=== PATIENT | male | born 1985 | race Hispanic/Latino ===

== ENCOUNTER 2018-05-16 15:54 | Emergency (ER) | payer MEDICAID, OTHER ==
[2018-05-16 15:54] VITALS: BMI 23.3
[2018-05-16 16:09] VITALS: BP 107/68; PULSE 66; RESP 18; TEMP 97.9; O2SAT 99
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
== END 2018-05-16 18:44 | disposition home or self-care (01) ==
LOC: C.ER 15:54
DX: S60.221A Contusion of right hand, initial encounter (principal); S00.83XA Contusion of other part of head, initial encounter; S00.81XA Abrasion of other part of head, initial encounter; S00.511A Abrasion of lip, initial encounter; Y09 Assault by unspecified means

== ENCOUNTER 2018-06-10 10:00 | Emergency (ER) | payer MEDICAID ==
[2018-06-10 10:00] VITALS: BMI 23.3
[2018-06-10] MEDS ORDERED: Aspirin 325 mg EC Tablets PO STA (10:27)
[2018-06-10 10:30] LABS: LYMPH # 2.2 K/uL (1.0-4.3); MEAN CORPUSCULAR HEMOGLOBIN 32.6 pg (27.0-31.0); RBC 4.46 Mil/uL (4.40-5.90); WHITE BLOOD COUNT 8.4 K/uL (4.8-10.8)
[2018-06-10 10:36] LABS: BASO # 0.1 K/uL (0.0-0.2); BASO % 0.9 % (0.0-2.0); EOS # 0.2 K/uL (0.0-0.7); EOS % 2.8 % (0.0-4.0); HEMOGLOBIN 14.5 g/dL (12.0-18.0); LYMPH % 26.4 % (20.0-40.0); MEAN CELL VOLUME 92.6 fL (80.0-94.0); MEAN CORPUSCULAR HGB CONC 35.2 g/dL (33.0-37.0); MEAN PLATELET VOLUME 10.2 fL (7.2-11.7); MONO # 0.9 K/uL (0.0-0.8); NEUT % 58.9 % (50.0-75.0); NRBC % 0.5 % (0.0-2.0); RED CELL DISTRIBUTION WIDTH 12.2 % (11.5-14.5)
[2018-06-10 10:58] LABS: ALB/GLOB RATIO 1.5 (1.0-2.1); ALBUMIN 4.3 g/dL (3.5-5.0); BLOOD UREA NITROGEN 25 mg/dL (9-20); GFR NON-AFRICAN AMERICAN > 60
[2018-06-10 11:01] LABS: ALT/SGPT 26 U/L (21-72); AST/SGOT 40 U/L (17-59)
[2018-06-10 11:10] LABS: CK-MB 0.28 ng/mL (0.0-3.38)
--- NOTE | 2018-06-10 11:11 | C.PDOC ---
History Of Present Illness 33 year old male presents to the ED for evaluation of left-sided chest pain that started earlier today. The patient described the chest pain as dull. The patient reports prior ED evaluation for chest pain and notes being released. He also complains of bilateral lower extremity numbness. Denies shortness of breath, fever, chills, injuries, bowel/bladder dysfunction, and any other associated symptoms. Family Hx: coronary artery disease, [place]. Time Seen by Provider: 06/10/18 10:08 Chief Complaint (Nursing): Chest Pain History Per: Patient History/Exam Limitations: no limitations Onset/Duration Of Symptoms: Hrs (prior to arrival. ) Current Symptoms Are (Timing): Still Present Quality: Dull Recent travel outside of the [place]: No Past Medical History Reviewed: Historical Data, Nursing Documentation, Vital Signs - Medical History PMH: Migraine Denies: Anxiety, Bipolar Disorder, Depression, Paranoia, Personality Disorder, Post Traumatic Stress Disorder, Schizophrenia Surgical History: Cholecystectomy - [facility] Procedures CLOSURE SKIN & SUBCUTANEOUS NEC (12/27/13) INJECT/INFUSE ELECTROLYT (12/07/14) INJECT/INFUSE NEC (12/07/14) NEBULIZER THERAPY (06/11/12) TETANUS TOXOID ADMINIST (12/27/13) Family History: States: Unknown Family Hx - Social History Hx Tobacco Use: No Hx Alcohol Use: No (socially) Hx Substance Use: No - Immunization History Hx Tetanus Toxoid Vaccination: No Hx Influenza Vaccination: No Hx Pneumococcal Vaccination: No Review Of Systems Except As Marked, All Systems Reviewed And Found Negative. Constitutional: Negative for: Fever, Chills, Other (injuries. ) Respiratory: Negative for: Shortness of Breath Genitourinary: Positive for: Other (bowel/bladder dysfunction.) Musculoskeletal: Positive for: Other Physical Exam - Physical Exam Appears: Well, Non-toxic, No Acute Distress Skin: Normal Color, Warm, Dry Head: Atraumatic, Normacephalic Eye(s): bilateral: Normal Inspection Oral Mucosa: Moist Neck: Normal ROM, Supple Chest: Symmetrical, No Deformity Cardiovascular: Rhythm Regular, No Murmur Respiratory: Normal Breath Sounds, No Rales, No Rhonchi, No Wheezing Gastrointestinal/Abdominal: Normal Exam, Soft, No Tenderness Extremity: Normal ROM (of the left leg. ), No Tenderness, No Deformity, No Swell ing Pulses: Left Dorsalis Pedis: Normal (2+), Right Dorsalis Pedis: Normal (2+) Neurological/Psych: Oriented x3, Normal Speech, Normal Cognition, Normal Motor, Normal Sensation, Normal Reflexes ED Course And Treatment - Laboratory Results Result Diagrams: 06/10/18 10:18 06/10/18 10:48 Lab Results: Total Bilirubin 0.4 mg/dL (0.2-1.3) 06/10/18 10:48 AST 40 U/L (17-59) 06/10/18 10:48 ALT 26 U/L (21-72) 06/10/18 10:48 Alkaline Phosphatase 72 U/L (38-126) 06/10/18 10:48 Total Protein 7.0 g/dL (6.3-8.3) 06/10/18 10:48 Albumin 4.3 g/dL (3.5-5.0) 06/10/18 10:48 Globulin 2.8 gm/dL (2.2-3.9) 06/10/18 10:48 Albumin/Globulin Ratio 1.5 (1.0-2.1) 06/10/18 10:48 ECG Rhythm: Sinus Rhythm Interpretation Of ECG: no ST elevation. QT normal. Rate From EC Medical Decision Making Medical Decision Making: Initial update: -Blood sent. -CXR -Aspirin. Progress/Update: In the ED, patient is observed to have no chest pain, paresthesia to legs almost resolved. Disposition - Disposition Referrals: Sandhya Cross MD [Medical Doctor] - Disposition: HOME/ ROUTINE Disposition Time: 12:48 Condition: STABLE Prescriptions: Gabapentin [Neurontin] 100 mg PO TID #10 capsule Instructions: Chest Pain, Paresthesias (DC) Forms: [employer] (Vietnamese) - Clinical Impression Clinical Impression: Nonspecific chest pain, Bilateral leg paresthesia - Scribe Statement The provider has reviewed the documentation as recorded by the Scribe (Geeta Garcia) Provider Attestation: All medical record entries made by the Scribe were at my direction and personally dictated by me. I have reviewed the chart and agree that the record accurately reflects my personal performance of the history, physical exam, medical decision making, and the department course for this patient. I have also personally directed, reviewed, and agree with the discharge instructions and disposition.
--- NOTE | 2018-06-10 11:58 | RAD ---
Date of service: 06/10/2018 PROCEDURE: CHEST RADIOGRAPH, 1 VIEW HISTORY: Chest pain COMPARISON: None available. FINDINGS: LUNGS: The lungs are well inflated and clear. PLEURA: No pneumothorax or pleural effusion. CARDIOVASCULAR: The heart is normal in size. No aortic atherosclerotic calcifications present. OSSEOUS STRUCTURES: Within normal limits for the patient's age. VISUALIZED UPPER ABDOMEN: Normal. OTHER FINDINGS: None. IMPRESSION: No active pulmonary disease.
[2018-06-10 12:32] LABS: PARTIAL THROMBOPLASTIN TIME 34 SECONDS (21-34); PROTHROMBIN TIME 10.9 SECONDS (9.7-12.2)
[2018-06-10 12:42] LABS: D DIMER < 200 ng/mlDDU (0-243)
[2018-06-10 13:12] VITALS: BP 103/67; PULSE 64; RESP 18; TEMP 98.2; O2SAT 100
--- NOTE | 2018-06-11 21:20 | CARD ---
APPROVED REPORT Date of service: 06/10/2018 EKG Measurement Heart [id number] <Conclusion> Normal sinus rhythm Normal ECG
== END 2018-06-10 13:12 | disposition home or self-care (01) ==
LOC: C.ER 10:00
DX: R07.9 Chest pain, unspecified (principal); R20.2 Paresthesia of skin